=== PATIENT | female | born 1965 | race Caucasian/White ===

== ENCOUNTER 2016-05-14 22:16 | Inpatient (IN) | payer MEDICAID ==
[2016-05-14] MEDS ORDERED: URECHOLINE25 M2 GT (22:32)
[2016-05-14] MEDS ORDERED: BACLOFEN20 M1 PO (22:33)
[2016-05-14] MEDS ORDERED: ZINC OXYDE PLUS TP (22:34)
[2016-05-14] MEDS ORDERED: RITALIN20 M1 PO (22:35)
[2016-05-14] MEDS ORDERED: REQUIP0.5 M1 PO (22:35)
[2016-05-14] MEDS ORDERED: AMANTADINE100 MG PO (22:37)
[2016-05-14] MEDS ORDERED: POTASSIUM CHLO20 ME3 PO ×2 (22:45→22:46)
[2016-05-14] MEDS ORDERED: LASIX40 M1 PO (22:46)
[2016-05-14] MEDS ORDERED: NORVASC5 M2 (22:47)
[2016-05-14] MEDS ORDERED: SIMETHICONE80 M3 PO (22:47)
[2016-05-14] MEDS ORDERED: MELATIN3 MG PO (22:48)
[2016-05-14] MEDS ORDERED: CLARITIN10 M6 PO (22:49)
[2016-05-14] MEDS ORDERED: METAMUCIL PACK3.4 G1 PO (22:51)
[2016-05-14] MEDS ORDERED: ACID CONTROL150 M2 PO (22:51)
[2016-05-14] MEDS ORDERED: FLOMAX0.4 M1 PEG (22:52)
[2016-05-14] MEDS ORDERED: XIFAXAN550 M1 PO (22:52)
[2016-05-14] MEDS ORDERED: [UNRECOGNIZED DRUG - CODE] PO (22:53)
[2016-05-14] MEDS ORDERED: BENADRYL25 M3 PO (23:02)
[2016-05-14] MEDS ORDERED: KEPPRA100 MG/1 M PO (23:04)
[2016-05-14] MEDS ORDERED: TYLENOL325 M2 PO (23:06)
[2016-05-14] MEDS ORDERED: MAG-AL LIQUID30 M1 PO (23:07)
[2016-05-14] MEDS ORDERED: LAXATIVE SUPPOS10 MG PR (23:08)
[2016-05-14] MEDS ORDERED: ULTRAM50 M1 PO (23:09)
[2016-05-14] MEDS ORDERED: ENEMEEZ283 MG/5 M PR (23:10)
[2016-05-14] MEDS ORDERED: DEXTROSE 525 GM/501 IV (23:12)
[2016-05-14 23:17] LABS: HGB-HEMOGLOBIN 10.8 gm/dl (12.0-15.5); MCH (MEAN CORPUSCULAR HGB) 32.5 pg (28.0-32.0); MCHC MEAN CORPUSCULAR HGB CONC 32.7 % (32.0-36.0); MCV (MEAN CELL VOLUME) 99.4 fl (82.0-96.0); MEAN PLATELET VOLUME 10.7 cmc (9.4-12.4); NEUTROPHIL-AUTOMATED 2.6 tho/cmm (1.6-8.0); PLATELET COUNT 111 tho/cmm (150-450); RED BLOOD COUNT 3.32 mil/cmm (4.00-5.20); RED CELL DISTRIBUTION WIDTH 13.4 % (12.4-16.4); WHITE BLOOD COUNT 6.6 tho/cmm (4.0-10.0)
[2016-05-14] MEDS ORDERED: MICONAZOLE TP (23:18)
[2016-05-14] MEDS ORDERED: TRIAMCINOLONE A15 G4 TP (23:19)
[2016-05-14] MEDS ORDERED: SYSTANE GEL EYE10 M1 OP (23:22)
[2016-05-14 23:39] LABS: ALB/GLOB RATIO 0.7 (0.8-2.0); ALBUMIN 2.5 g/dl (3.5-5.0); ALKALINE PHOSPHATASE 140 U/L (33-138); ALT/SGPT 70 U/L (12-78); ANION GAP 12 mmol/L (0-20); AST/SGOT 83 U/L (10-40); BILIRUBIN,TOTAL 0.4 mg/dl (0-1.5); BLOOD UREA NITROGEN 7 mg/dl (6-24); CALCIUM 7.8 mg/dl (8.5-10.5); CARBON DIOXIDE-VENOUS 29 mmol/L (22-32); CHLORIDE 104 mmol/l (96-110); CREATININE 0.45 mg/dl (0.50-1.10); GLUCOSE 156 mg/dL (70-110); MAGNESIUM 1.8 mg/dl (1.3-2.6); POTASSIUM 3.2 mmol/L (3.7-5.1); SODIUM 142 mmol/L (135-145); eGFR VALUE FOR BLACK >90 mL/Min
[2016-05-14 23:47] LABS: BAND % 1 % (0-20); BAND ABSOLUTE COUNT 0.1 tho/cmm (0-2.0); BASOPHIL % 3 % (0-2); BASOPHIL ABSOLUTE COUNT 0.2 tho/cmm (0.0-0.2); EOSINOPHIL % 17 % (0-7)
[2016-05-14 23:58] LABS: INR 1.2 INR (0.9-1.1); PROTHROMBIN TIME 13.8 SECONDS (9.0-13.6)
[2016-05-15 00:01] LABS: PROCALCITONIN 0.07 ng/ml (0.05-0.09)
[2016-05-15] MEDS ORDERED: PREDNISONE10 M1 PO (04:37)
[2016-05-15 09:25] LABS: HCT-HEMATOCRIT 32.8 % (34.0-49.0); HGB-HEMOGLOBIN 10.4 gm/dl (12.0-15.5); LYMPH % 30.8 % (20-45); MCH (MEAN CORPUSCULAR HGB) 32.2 pg (28.0-32.0); MCHC MEAN CORPUSCULAR HGB CONC 31.7 % (32.0-36.0); MCV (MEAN CELL VOLUME) 101.5 fl (82.0-96.0); MONO % 12.1 % (0-12); NEUTROPHIL-AUTOMATED 2.1 tho/cmm (1.6-8.0); NEUTROPHILS % 33.6 % (40-80); PLATELET COUNT 105 tho/cmm (150-450); RED BLOOD COUNT 3.23 mil/cmm (4.00-5.20); RED CELL DISTRIBUTION WIDTH 13.4 % (12.4-16.4); WHITE BLOOD COUNT 6.1 tho/cmm (4.0-10.0)
[2016-05-15 09:34] LABS: BASO % 1.5 % (0-2); BASO ABSOLUTE COUNT 0.1 tho/cmm (0.0-0.2); EOSINOPHIL ABSOLUTE COUNT 1.4 tho/cmm (0.0-0.7); LYMPH ABSOLUTE COUNT 1.9 tho/cmm (0.8-4.5); MONOCYTE ABSOLUTE COUNT 0.7 tho/cmm (0.0-1.2); NEUTROPHIL ABSOLUTE COUNT 2.1 tho/cmm (1.6-8.0)
[2016-05-15 09:41] LABS: ANION GAP 11 mmol/L (0-20); BLOOD UREA NITROGEN 6 mg/dl (6-24); CALCIUM 8.2 mg/dl (8.5-10.5); CARBON DIOXIDE-VENOUS 29 mmol/L (22-32); CHLORIDE 110 mmol/l (96-110); CHOLESTEROL 85 mg/dl (120-200); CKMB 3.6 ng/ml (<3.6); CREATININE 0.34 mg/dl (0.50-1.10); GLUCOSE 91 mg/dL (70-110); HDL CHOLESTEROL 23 mg/dl (40-60); LDL CHOLESTEROL 33 mg/dl (0-99); MAGNESIUM 1.7 mg/dl (1.3-2.6); POTASSIUM 3.6 mmol/L (3.7-5.1); SODIUM 146 mmol/L (135-145); TRIGLYCERIDES 147 mg/dl (<149); VLDL 29 mg/dl (0-30); eGFR VALUE FOR BLACK >90 mL/Min
[2016-05-15 13:20] LABS: CKMB 3.2 ng/ml (<3.6)
[2016-05-16 04:54] LABS: BASO % 1.3 % (0-2); BASO ABSOLUTE COUNT 0.1 tho/cmm (0.0-0.2); HCT-HEMATOCRIT 31.2 % (34.0-49.0); HGB-HEMOGLOBIN 10.2 gm/dl (12.0-15.5); IMMATURE GRANULOCYTES ABSOLUTE 0.01 tho/cmm (0-0.03); IMMATURE GRANULOCYTES PERCENT 0.2 % (0-0.3); LYMPH % 31.5 % (20-45); MCH (MEAN CORPUSCULAR HGB) 32.4 pg (28.0-32.0); MCHC MEAN CORPUSCULAR HGB CONC 32.7 % (32.0-36.0); MONO % 10.7 % (0-12); MONOCYTE ABSOLUTE COUNT 0.7 tho/cmm (0.0-1.2); NEUTROPHIL ABSOLUTE COUNT 3.6 tho/cmm (1.6-8.0); NEUTROPHIL-AUTOMATED 3.6 tho/cmm (1.6-8.0); NEUTROPHILS % 56.3 % (40-80); PLATELET COUNT 102 tho/cmm (150-450); RED BLOOD COUNT 3.15 mil/cmm (4.00-5.20); RED CELL DISTRIBUTION WIDTH 13.8 % (12.4-16.4); WHITE BLOOD COUNT 6.4 tho/cmm (4.0-10.0)
[2016-05-16 05:29] LABS: ANION GAP 13 mmol/L (0-20); BLOOD UREA NITROGEN 4 mg/dl (6-24); CALCIUM 8.1 mg/dl (8.5-10.5); CARBON DIOXIDE-VENOUS 26 mmol/L (22-32); CHLORIDE 111 mmol/l (96-110); CREATININE 0.35 mg/dl (0.50-1.10); GLUCOSE 83 mg/dL (70-110); POTASSIUM 3.2 mmol/L (3.7-5.1); SODIUM 147 mmol/L (135-145); eGFR VALUE FOR BLACK >90 mL/Min
[2016-05-17 06:12] LABS: HGB-HEMOGLOBIN 10.9 gm/dl (12.0-15.5); PLATELET COUNT 101 tho/cmm (150-450)
[2016-05-17 06:33] LABS: ANION GAP 11 mmol/L (0-20); BLOOD UREA NITROGEN 2 mg/dl (6-24); CALCIUM 7.9 mg/dl (8.5-10.5); CARBON DIOXIDE-VENOUS 27 mmol/L (22-32); CHLORIDE 110 mmol/l (96-110); CREATININE 0.37 mg/dl (0.50-1.10); POTASSIUM 3.3 mmol/L (3.7-5.1); SODIUM 145 mmol/L (135-145); eGFR VALUE FOR BLACK >90 mL/Min
[2016-05-17 06:34] LABS: GLUCOSE 152 mg/dL (70-110)
[2016-05-17] MEDS ORDERED: MICONAZOLE 324 GM TOP (14:50)
[2016-05-17] MEDS ORDERED: REQUIP0.5 M1 PO (14:51)
[2016-05-17] MEDS ORDERED: AMANTADINE100 MG PO (14:51)
[2016-05-17] MEDS ORDERED: TOPROL XL25 M1 PO (15:07)
== END 2016-05-18 10:15 | DRG 309 ==
LOC: EDMED 22:16 → EMR2 05-15 03:50 → PCUB 05-15 05:31
PROVIDERS: Family Medicine; Internal Medicine; Nurse Practitioner Adult Health; Nurse Practitioner Family; ADMIT Internal Medicine Clinical Cardiac Electrophysiology
DX: I47.1 Supraventricular tachycardia (principal); I69.354 Hemiplegia and hemiparesis following cerebral infarction affecting left non-dominant side; J90 Pleural effusion, not elsewhere classified; D69.6 Thrombocytopenia, unspecified; I95.9 Hypotension, unspecified; B19.20 Unspecified viral hepatitis C without hepatic coma; R33.9 Retention of urine, unspecified; E87.6 Hypokalemia; R05 Cough; M06.9 Rheumatoid arthritis, unspecified; I10 Essential (primary) hypertension; I25.2 Old myocardial infarction; Z79.52 Long term (current) use of systemic steroids; Z87.898 Personal history of other specified conditions; Z87.891 Personal history of nicotine dependence; Z79.1 Long term (current) use of non-steroidal anti-inflammatories (NSAID); Z82.3 Family history of stroke
CPT/HCPCS: A9500; J0153; J2785; J3480; J7030